=== PATIENT | female | born 1970 | race Hispanic/Latino ===

== ENCOUNTER 2018-12-21 13:50 | Emergency (ER) | payer BC, OTHER ==
[~2018-12-21] VITALS: Ht 162.6 cm; Wt 137.0 kg
[2018-12-21] MEDS ORDERED: POTASSIUM CHLORIDE 20 MEQ TAB CR PO STA (16:00)
[2018-12-21] MEDS ORDERED: POTASSIUM CHLORIDE 20 MEQ TAB CR PO ONE (16:00)
[2018-12-21 16:05] VITALS: BP 169/88
== END 2018-12-21 16:12 | disposition home or self-care (01) ==
LOC: FSED 13:50
DX: R00.2 Palpitations (principal); R20.2 Paresthesia of skin
CPT/HCPCS: 80053; 82553; 84484; 85025; 85379; 93005; 99284